=== PATIENT | male | born 1935 | race Asian ===

== ENCOUNTER 2016-06-27 10:01 | Inpatient (IN) | payer OTHER | END 2016-07-28 08:00 | disposition still patient (30) | LOC: PAVC 10:01 | PROVIDERS: ADMIT Internal Medicine | DX: Z51.89 Encounter for other specified aftercare (principal) ==

== ENCOUNTER 2016-07-28 09:00 | Inpatient (IN) | payer OTHER | END 2016-08-28 13:10 | disposition still patient (30) | LOC: PAVC 09:00 | PROVIDERS: ADMIT Internal Medicine | DX: Z51.89 Encounter for other specified aftercare (principal) ==

== ENCOUNTER 2016-08-09 12:44 | Outpatient (CLI) | payer OTHER | END 2016-08-09 21:44 | disposition home or self-care (01) | LOC: LAB 12:44 | DX: M10.9 Gout, unspecified (principal) | CPT/HCPCS: 36415; 84550 ==

== ENCOUNTER 2016-08-28 13:20 | Inpatient (IN) | payer OTHER | END 2016-09-25 13:24 | disposition still patient (30) | LOC: PAVC 13:20 | PROVIDERS: ADMIT Internal Medicine | DX: Z51.89 Encounter for other specified aftercare (principal) ==

== ENCOUNTER 2016-09-25 13:54 | Inpatient (IN) | payer OTHER | END 2016-10-26 08:16 | disposition still patient (30) | LOC: PAVC 13:54 | PROVIDERS: ADMIT Internal Medicine | DX: Z51.89 Encounter for other specified aftercare (principal) ==

== ENCOUNTER 2016-10-26 08:25 | Inpatient (IN) | payer OTHER | END 2016-11-25 11:01 | disposition still patient (30) | LOC: PAVC 08:25 | PROVIDERS: ADMIT Internal Medicine | DX: Z51.89 Encounter for other specified aftercare (principal) ==

== ENCOUNTER 2016-11-24 10:39 | Outpatient (CLI) | payer OTHER | END 2016-11-24 19:47 | disposition home or self-care (01) | LOC: LAB 10:39 | DX: Z16.24 Resistance to multiple antibiotics (principal) | CPT/HCPCS: 87081 ==

== ENCOUNTER 2016-11-25 11:09 | Inpatient (IN) | payer OTHER | END 2016-12-26 11:13 | disposition still patient (30) | LOC: PAVC 11:09 | PROVIDERS: ADMIT Internal Medicine | DX: Z51.89 Encounter for other specified aftercare (principal) ==

== ENCOUNTER 2016-12-26 11:19 | Inpatient (IN) | payer OTHER | END 2017-01-25 16:13 | disposition still patient (30) | LOC: PAVC 11:19 | PROVIDERS: ADMIT Internal Medicine | DX: Z51.89 Encounter for other specified aftercare (principal) ==

== ENCOUNTER 2017-01-25 16:14 | Inpatient (IN) | payer OTHER | END 2017-02-25 13:04 | disposition still patient (30) | LOC: PAVC 16:14 | PROVIDERS: ADMIT Internal Medicine | DX: Z51.89 Encounter for other specified aftercare (principal) ==

== ENCOUNTER 2017-02-25 14:28 | Inpatient (IN) | payer OTHER | END 2017-03-28 10:02 | disposition still patient (30) | LOC: PAVC 14:28 | PROVIDERS: ADMIT Internal Medicine | DX: Z51.89 Encounter for other specified aftercare (principal) ==

== ENCOUNTER 2017-03-28 10:09 | Inpatient (IN) | payer OTHER | END 2017-04-27 09:40 | disposition still patient (30) | LOC: PAVC 10:09 | PROVIDERS: ADMIT Internal Medicine | DX: Z51.89 Encounter for other specified aftercare (principal) ==

== ENCOUNTER 2017-04-27 09:46 | Inpatient (IN) | payer OTHER | END 2017-05-28 14:23 | disposition still patient (30) | LOC: PAVC 09:46 | PROVIDERS: ADMIT Internal Medicine ==

== ENCOUNTER 2017-05-28 15:31 | Inpatient (IN) | payer OTHER | END 2017-06-27 10:34 | disposition still patient (30) | LOC: PAVC 15:31 | PROVIDERS: ADMIT Internal Medicine ==

== ENCOUNTER 2017-06-27 11:12 | Inpatient (IN) | payer OTHER | END 2017-07-28 11:19 | disposition still patient (30) | LOC: PAVC 11:12 | PROVIDERS: ADMIT Internal Medicine ==

== ENCOUNTER 2017-07-28 11:29 | Inpatient (IN) | payer OTHER | END 2017-08-28 11:16 | disposition still patient (30) | LOC: PAVC 11:29 | PROVIDERS: ADMIT Internal Medicine ==

== ENCOUNTER 2017-08-25 05:06 | Outpatient (CLI) | payer OTHER | END 2017-08-25 21:07 | disposition home or self-care (01) | LOC: LAB 05:06 | PROVIDERS: Internal Medicine | DX: Z13.220 Encounter for screening for lipoid disorders (principal); M10.00 Idiopathic gout, unspecified site; E78.6 Lipoprotein deficiency | CPT/HCPCS: 36415; 80061; 84550 ==

== ENCOUNTER 2017-08-28 11:18 | Inpatient (IN) | payer OTHER | END 2017-09-25 10:42 | disposition still patient (30) | LOC: PAVC 11:18 | PROVIDERS: ADMIT Internal Medicine ==

== ENCOUNTER 2017-09-24 13:39 | Outpatient (CLI) | payer OTHER | END 2017-09-24 21:41 | disposition home or self-care (01) | LOC: LAB 13:39 | DX: D64.89 Other specified anemias (principal) | CPT/HCPCS: 85018 ==

== ENCOUNTER 2017-09-25 11:14 | Inpatient (IN) | payer OTHER | END 2017-10-26 08:00 | disposition still patient (30) | LOC: PAVC 11:14 | PROVIDERS: ADMIT Internal Medicine ==

== ENCOUNTER 2017-10-26 09:00 | Inpatient (IN) | payer OTHER | END 2017-11-25 10:34 | disposition still patient (30) | LOC: PAVC 09:00 | PROVIDERS: ADMIT Internal Medicine ==

== ENCOUNTER 2017-11-25 11:10 | Inpatient (IN) | payer OTHER | END 2017-12-26 10:28 | disposition still patient (30) | LOC: PAVC 11:10 | PROVIDERS: ADMIT Internal Medicine ==

== ENCOUNTER 2017-12-26 10:34 | Inpatient (IN) | payer OTHER | END 2018-01-25 15:08 | disposition still patient (30) | LOC: PAVC 10:34 | PROVIDERS: ADMIT Internal Medicine ==

== ENCOUNTER 2018-01-16 06:06 | Outpatient (CLI) | payer OTHER | END 2018-01-16 18:54 | disposition home or self-care (01) | LOC: LAB 06:06 | DX: D52.8 Other folate deficiency anemias (principal) | CPT/HCPCS: 36415; 82607; 82746; 82747 ==

== ENCOUNTER 2018-01-25 15:16 | Inpatient (IN) | payer OTHER | END 2018-02-25 08:00 | disposition still patient (30) | LOC: PAVC 15:16 | PROVIDERS: ADMIT Internal Medicine ==

== ENCOUNTER 2018-01-30 06:19 | Outpatient (CLI) | payer OTHER | END 2018-01-30 19:03 | disposition home or self-care (01) | LOC: LAB 06:19 | DX: M10.9 Gout, unspecified (principal) | CPT/HCPCS: 84550 ==

== ENCOUNTER 2018-02-25 09:00 | Inpatient (IN) | payer OTHER | END 2018-03-28 11:14 | disposition still patient (30) | LOC: PAVC 09:00 | PROVIDERS: ADMIT Internal Medicine ==

== ENCOUNTER 2018-03-28 11:16 | Inpatient (IN) | payer OTHER | END 2018-04-27 15:08 | disposition still patient (30) | LOC: PAVC 11:16 | PROVIDERS: ADMIT Internal Medicine ==

== ENCOUNTER 2018-04-27 16:20 | Inpatient (IN) | payer OTHER | END 2018-05-28 10:43 | disposition still patient (30) | LOC: PAVC 16:20 | PROVIDERS: ADMIT Internal Medicine ==

== ENCOUNTER 2018-05-28 10:55 | Inpatient (IN) | payer OTHER | END 2018-06-27 07:09 | disposition still patient (30) | LOC: PAVC 10:55 | PROVIDERS: ADMIT Internal Medicine ==

== ENCOUNTER 2018-06-27 07:10 | Inpatient (IN) | payer OTHER | END 2018-07-28 09:41 | disposition still patient (30) | LOC: PAVC 07:10 | PROVIDERS: ADMIT Internal Medicine ==

== ENCOUNTER 2018-07-28 10:16 | Inpatient (IN) | payer OTHER | END 2018-08-28 08:42 | disposition still patient (30) | LOC: PAVC 10:16 | PROVIDERS: ADMIT Internal Medicine ==

== ENCOUNTER 2018-08-03 04:51 | Outpatient (CLI) | payer OTHER | END 2018-08-03 20:15 | disposition home or self-care (01) | LOC: LAB 04:51 | PROVIDERS: Internal Medicine | DX: M10.9 Gout, unspecified (principal); N17.9 Acute kidney failure, unspecified; Z79.899 Other long term (current) drug therapy | CPT/HCPCS: 80061; 84550 ==

== ENCOUNTER 2018-08-28 09:19 | Inpatient (IN) | payer OTHER | END 2018-09-25 13:54 | disposition still patient (30) | LOC: PAVC 09:19 | PROVIDERS: ADMIT Internal Medicine ==

== ENCOUNTER 2018-09-25 14:09 | Inpatient (IN) | payer OTHER | END 2018-10-26 13:06 | disposition still patient (30) | LOC: PAVC 14:09 | PROVIDERS: ADMIT Internal Medicine ==

== ENCOUNTER 2018-10-15 15:43 | Outpatient (CLI) | payer OTHER | END 2018-10-15 19:17 | disposition home or self-care (01) | LOC: RAD 15:43 | DX: M25.551 Pain in right hip (principal); M25.561 Pain in right knee ==

== ENCOUNTER 2018-10-26 13:14 | Inpatient (IN) | payer OTHER | END 2018-11-25 15:57 | disposition still patient (30) | LOC: PAVC 13:14 | PROVIDERS: ADMIT Internal Medicine ==

== ENCOUNTER 2018-11-11 16:18 | Outpatient (CLI) | payer OTHER | END 2018-11-11 23:48 | disposition home or self-care (01) | LOC: LAB 16:18 | DX: Z12.5 Encounter for screening for malignant neoplasm of prostate (principal) | CPT/HCPCS: 36415; 84153 ==

== ENCOUNTER 2018-11-25 16:40 | Inpatient (IN) | payer OTHER | END 2018-12-26 09:43 | disposition still patient (30) | LOC: PAVC 16:40 | PROVIDERS: ADMIT Internal Medicine | DX: I63.50 Cerebral infarction due to unspecified occlusion or stenosis of unspecified cerebral artery (principal); J15.9 Unspecified bacterial pneumonia; M62.81 Muscle weakness (generalized); N18.6 End stage renal disease; I10 Essential (primary) hypertension; K21.9 Gastro-esophageal reflux disease without esophagitis; M10.9 Gout, unspecified; Z99.2 Dependence on renal dialysis; M13.80 Other specified arthritis, unspecified site ==

== ENCOUNTER 2018-12-18 08:08 | Outpatient (CLI) | payer OTHER | END 2018-12-18 23:15 | disposition home or self-care (01) | LOC: LAB 08:08 | DX: I20.8 Other forms of angina pectoris (principal); R06.02 Shortness of breath | CPT/HCPCS: 36415; 82550; 82553; 83880; 84484 ==

== ENCOUNTER 2018-12-18 12:53 | Outpatient (CLI) | payer OTHER | END 2018-12-18 12:54 | disposition short-term general hospital (02) | LOC: AMB 12:53 | DX: R06.02 Shortness of breath (principal); R07.89 Other chest pain | CPT/HCPCS: A0425; A0429 ==

== ENCOUNTER 2018-12-18 12:58 | Emergency (ER) | payer OTHER ==
[~2018-12-18] VITALS: Ht 175.3 cm; Wt 69.9 kg
[2018-12-18 13:11] VITALS: TEMP 97.5
[2018-12-18 13:32] LABS: PLATELET COUNT 144 K/uL (142-355)
[2018-12-18 13:51] LABS: PARTIAL THROMBOPLASTIN TIME 24.3 SECONDS (24.5-33.6)
[2018-12-18 13:59] LABS: POTASSIUM 3.6 mmol/L (3.6-5.2)
[2018-12-18 17:21] VITALS: BP 130/64
== END 2018-12-18 16:30 | disposition short-term general hospital (02) ==
LOC: ED 12:58
PROVIDERS: Student in an Organized Health Care Education/Training Program
DX: J18.9 Pneumonia, unspecified organism (principal); R79.89 Other specified abnormal findings of blood chemistry; R07.89 Other chest pain
CPT/HCPCS: 36415; 80053; 83880; 84484; 85027; 85610; 85730; 87040; 93005; 96365; 96366; 99284; J0456; J0696

== ENCOUNTER 2019-01-25 14:07 | Inpatient (IN) | payer OTHER | END 2019-02-25 12:35 | disposition still patient (30) | LOC: PAVC 14:07 | PROVIDERS: ADMIT Internal Medicine | DX: I63.50 Cerebral infarction due to unspecified occlusion or stenosis of unspecified cerebral artery (principal); J15.9 Unspecified bacterial pneumonia; M62.81 Muscle weakness (generalized); N18.6 End stage renal disease; I10 Essential (primary) hypertension; K21.9 Gastro-esophageal reflux disease without esophagitis; M10.9 Gout, unspecified; Z99.2 Dependence on renal dialysis; M13.80 Other specified arthritis, unspecified site ==

== ENCOUNTER 2019-02-09 08:27 | Outpatient (CLI) | payer OTHER | END 2019-02-09 23:23 | disposition home or self-care (01) | LOC: LAB 08:27 | DX: E79.0 Hyperuricemia without signs of inflammatory arthritis and tophaceous disease (principal) | CPT/HCPCS: 84550 ==

== ENCOUNTER 2019-02-16 03:15 | Outpatient (CLI) | payer OTHER | END 2019-02-16 22:23 | disposition home or self-care (01) | LOC: LAB 03:15 | DX: D64.89 Other specified anemias (principal); D51.8 Other vitamin B12 deficiency anemias | CPT/HCPCS: 82607 ==

== ENCOUNTER 2019-02-25 12:53 | Inpatient (IN) | payer OTHER | END 2019-03-28 17:20 | disposition still patient (30) | LOC: PAVC 12:53 | PROVIDERS: ADMIT Internal Medicine ==

== ENCOUNTER 2019-03-23 13:49 | Outpatient (CLI) | payer OTHER ==
[2019-03-23 14:05] LABS: PLATELET COUNT 137 K/uL (142-355)
[2019-03-23 14:53] LABS: POTASSIUM 4.4 mmol/L (3.6-5.2)
== END 2019-03-23 23:59 | disposition home or self-care (01) ==
LOC: LAB 13:49
PROVIDERS: Internal Medicine
DX: R06.09 Other forms of dyspnea (principal); R41.82 Altered mental status, unspecified; N17.8 Other acute kidney failure
CPT/HCPCS: 80053; 83880; 85027

== ENCOUNTER 2019-03-28 17:27 | Inpatient (IN) | payer OTHER | END 2019-04-27 12:58 | disposition still patient (30) | LOC: PAVC 17:27 | PROVIDERS: ADMIT Internal Medicine ==

== ENCOUNTER 2019-04-27 13:32 | Inpatient (IN) | payer OTHER ==
[2019-05-22] MEDS ORDERED: DOCU100C10 PO (21:36)
[2019-05-22] MEDS ORDERED: HYDRALAZINE25 MG PO (21:37)
[2019-05-22] MEDS ORDERED: AMLODIPINE BESYLATE PO (21:59)
[2019-05-22] MEDS ORDERED: OMEP20CA PO (22:46)
[2019-05-22] MEDS ORDERED: RENVELA800 MG PO (22:49)
[2019-05-22] MEDS ORDERED: SIMV20TA2 PO (22:50)
[2019-05-22] MEDS ORDERED: ALLO100T22 PO (22:52)
[2019-05-22] MEDS ORDERED: TYLENOL325 MG PO (22:56)
[2019-05-23] MEDS ORDERED: CARV6.25 PO (08:01)
[2019-05-23] MEDS ORDERED: IPRATROPIUM/ INH (08:02)
[2019-05-23] MEDS ORDERED: GUAI600T70 PO (08:02)
[2019-05-23] MEDS ORDERED: METH125I IV (08:03)
== END 2019-05-28 14:14 | disposition still patient (30) ==
LOC: PAVC 13:32
PROVIDERS: ADMIT Internal Medicine

== ENCOUNTER 2019-05-22 11:27 | Observation (INO) | payer OTHER ==
[~2019-05-22] VITALS: Ht 175.3 cm; Wt 71.9 kg
[2019-05-22 11:27] VITALS: BP 122/55; TEMP 97.2
[2019-05-22 12:01] LABS: PLATELET COUNT 86 K/uL (142-355)
[2019-05-22 12:14] LABS: POTASSIUM 3.6 mmol/L (3.6-5.2)
[2019-05-22 16:52] VITALS: BP 152/67; TEMP 98.6; Ht 175.3 cm; Wt 71.9 kg
[2019-05-22 20:00] VITALS: BP 127/67; TEMP 98.7
[2019-05-22] MEDS ORDERED: DOCU100C10 PO (21:36)
[2019-05-22] MEDS ORDERED: HYDRALAZINE25 MG PO (21:37)
[2019-05-22] MEDS ORDERED: AMLODIPINE BESYLATE PO (21:59)
[2019-05-22] MEDS ORDERED: OMEP20CA PO (22:46)
[2019-05-22] MEDS ORDERED: RENVELA800 MG PO (22:49)
[2019-05-22] MEDS ORDERED: SIMV20TA2 PO (22:50)
[2019-05-22] MEDS ORDERED: ALLO100T22 PO (22:52)
[2019-05-22] MEDS ORDERED: TYLENOL325 MG PO (22:56)
[2019-05-22 23:52] VITALS: BP 146/68; TEMP 98.4
[2019-05-23 03:58] VITALS: BP 143/72; TEMP 98.4
[2019-05-23 04:25] LABS: PLATELET COUNT 89 K/uL (142-355)
[2019-05-23 04:38] LABS: POTASSIUM 4.5 mmol/L (3.6-5.2)
[2019-05-23 08:00] VITALS: BP 157/72; TEMP 98.6
[2019-05-23] MEDS ORDERED: CARV6.25 PO (08:01)
[2019-05-23] MEDS ORDERED: GUAI600T70 PO (08:02)
[2019-05-23] MEDS ORDERED: IPRATROPIUM/ INH (08:02)
[2019-05-23] MEDS ORDERED: METH125I IV (08:03)
--- NOTE | 2019-05-23 10:51 | NUR ---
PATIENT WAS STILL LETHARGIC THIS MORNING AND WAS CHEEKING HIS FOOD. I ASKED DOCTOR Marissa LOZANO IF I COULD HOLD HIS MORNING MEDICATIONS AND SHE AGREED IT WAS OK. HE WAS DISCHARGED TO THE [facility] [place] AT 1030. HIS NURSE ALICIA ESPITIA LPN. RECIEVED REPORT AND HIS PAPERWORK.
== END 2019-05-23 10:30 ==
LOC: ED 11:27 → MED/SURG 13:52
PROVIDERS: Emergency Medicine; ADMIT Family Medicine
DX: J18.8 Other pneumonia, unspecified organism (principal); N18.6 End stage renal disease; Z99.2 Dependence on renal dialysis; Z95.1 Presence of aortocoronary bypass graft; I10 Essential (primary) hypertension; I25.10 Atherosclerotic heart disease of native coronary artery without angina pectoris; E16.1 Other hypoglycemia; R53.83 Other fatigue; R41.82 Altered mental status, unspecified; R62.7 Adult failure to thrive
CPT/HCPCS: 80053; 82550; 82553; 82948; 82962; 83605; 83880; 84484; 85027; 87040; 94640; 94664; 94760; 96360; 96366; 96367; 96374; 96376; 99220; 99284; G0378; J0456; J0696; J2930; J7060

== ENCOUNTER 2019-05-25 12:32 | Outpatient (CLI) | payer OTHER ==
[~2019-05-25 12:32] MED LIST: ALLO100T22 PO; AMLODIPINE BESYLATE PO; CARV6.25 PO; DOCU100C10 PO; GUAI600T70 PO; HYDRALAZINE25 MG PO; IPRATROPIUM/ INH; METH125I IV; OMEP20CA PO; RENVELA800 MG PO; SIMV20TA2 PO; TYLENOL325 MG PO
== END 2019-05-25 20:20 | disposition home or self-care (01) ==
LOC: RAD 12:32
DX: R05 Cough (principal); J18.9 Pneumonia, unspecified organism

== ENCOUNTER 2019-05-28 14:42 | Inpatient (IN) | payer OTHER | END 2019-06-27 08:00 | disposition still patient (30) | LOC: PAVC 14:42 | PROVIDERS: ADMIT Internal Medicine | DX: J18.9 Pneumonia, unspecified organism (principal); N18.6 End stage renal disease; R13.10 Dysphagia, unspecified; Z99.2 Dependence on renal dialysis; I10 Essential (primary) hypertension; D64.9 Anemia, unspecified; M10.9 Gout, unspecified; K21.9 Gastro-esophageal reflux disease without esophagitis; I63.50 Cerebral infarction due to unspecified occlusion or stenosis of unspecified cerebral artery ==

== ENCOUNTER 2019-06-27 11:00 | Inpatient (IN) | payer OTHER | END 2019-07-28 09:31 | disposition still patient (30) | LOC: PAVC 11:00 | PROVIDERS: ADMIT Internal Medicine | DX: J18.9 Pneumonia, unspecified organism (principal); N18.6 End stage renal disease; R13.10 Dysphagia, unspecified; Z99.2 Dependence on renal dialysis; I10 Essential (primary) hypertension; D64.9 Anemia, unspecified; M10.9 Gout, unspecified; K21.9 Gastro-esophageal reflux disease without esophagitis; I63.50 Cerebral infarction due to unspecified occlusion or stenosis of unspecified cerebral artery ==

== ENCOUNTER 2019-07-28 09:58 | Inpatient (IN) | payer OTHER | END 2019-08-28 10:45 | disposition still patient (30) | LOC: PAVC 09:58 | PROVIDERS: ADMIT Internal Medicine | DX: J18.9 Pneumonia, unspecified organism (principal); N18.6 End stage renal disease; R13.10 Dysphagia, unspecified; Z99.2 Dependence on renal dialysis; I10 Essential (primary) hypertension; D64.9 Anemia, unspecified; M10.9 Gout, unspecified; K21.9 Gastro-esophageal reflux disease without esophagitis; I63.50 Cerebral infarction due to unspecified occlusion or stenosis of unspecified cerebral artery ==

== ENCOUNTER 2019-07-30 05:20 | Outpatient (CLI) | payer OTHER | END 2019-07-30 19:07 | disposition home or self-care (01) | LOC: LAB 05:20 | PROVIDERS: Internal Medicine | DX: E78.49 Other hyperlipidemia (principal); M10.9 Gout, unspecified | CPT/HCPCS: 80061; 84550 ==

== ENCOUNTER 2019-08-25 16:20 | Outpatient (CLI) | payer OTHER | END 2019-08-25 16:21 | disposition short-term general hospital (02) | LOC: AMB 16:20 | DX: R41.0 Disorientation, unspecified (principal); F03.90 Unspecified dementia, unspecified severity, without behavioral disturbance, psychotic disturbance, mood disturbance, and anxiety | CPT/HCPCS: A0425; A0429 ==

== ENCOUNTER 2019-08-25 16:23 | Emergency (ER) | payer OTHER ==
[~2019-08-25] VITALS: Ht 175.3 cm; Wt 71.7 kg
[2019-08-25 17:13] LABS: PLATELET COUNT 109 K/uL (142-355)
[2019-08-25 17:19] LABS: POTASSIUM 3.2 mmol/L (3.6-5.2)
[2019-08-25 18:00] VITALS: BP 148/75
== END 2019-08-25 18:25 | disposition home or self-care (01) ==
LOC: ED 16:33
PROVIDERS: Emergency Medicine
DX: R41.82 Altered mental status, unspecified (principal); F03.91 Unspecified dementia, unspecified severity, with behavioral disturbance; N18.6 End stage renal disease; Z99.2 Dependence on renal dialysis
CPT/HCPCS: 80053; 85027; 99283

== ENCOUNTER 2019-08-26 14:54 | Outpatient (CLI) | payer OTHER | END 2019-08-26 22:43 | disposition home or self-care (01) | LOC: LAB 14:54 | DX: J32.8 Other chronic sinusitis (principal) | CPT/HCPCS: 87070 ==

== ENCOUNTER 2019-08-28 11:13 | Inpatient (IN) | payer OTHER ==
[2019-09-21] MEDS ORDERED: AMLODIPINE BESYLATE PO (16:53)
[2019-09-21] MEDS ORDERED: NEPRO EN (16:56)
== END 2019-09-26 14:11 | disposition still patient (30) ==
LOC: PAVC 11:13
PROVIDERS: ADMIT Internal Medicine

== ENCOUNTER 2019-09-14 15:23 | Outpatient (CLI) | payer OTHER ==
[2019-09-14 15:41] LABS: PLATELET COUNT 87 K/uL (142-355)
[2019-09-14 15:48] LABS: POTASSIUM 3.8 mmol/L (3.6-5.2)
== END 2019-09-14 22:02 | disposition home or self-care (01) ==
LOC: LAB 15:23
PROVIDERS: Internal Medicine
DX: R41.82 Altered mental status, unspecified (principal)
CPT/HCPCS: 80053; 81000; 85027; 87088

== ENCOUNTER 2019-09-21 08:58 | Inpatient (IN) | payer OTHER ==
[~2019-09-21] VITALS: Ht 170.2 cm; Wt 66.9 kg
[2019-09-21 09:04] VITALS: BP 158/62; TEMP 97.9
[2019-09-21 09:29] LABS: PLATELET COUNT 66 K/uL (142-355)
[2019-09-21 09:43] LABS: POTASSIUM 4.3 mmol/L (3.6-5.2)
[2019-09-21 13:00] VITALS: BP 118/72
[2019-09-21] MEDS ORDERED: AMLODIPINE BESYLATE PO (16:53)
[2019-09-21] MEDS ORDERED: NEPRO EN (16:56)
[2019-09-21 20:00] VITALS: BP 160/76; TEMP 97.8
[2019-09-21 23:52] VITALS: BP 158/72; TEMP 96.3
[2019-09-22 02:31] VITALS: BP 178/73; TEMP 97; Ht 170.2 cm; Wt 66.9 kg
[2019-09-22 04:00] VITALS: BP 109/61; TEMP 96.8
[2019-09-22 06:10] LABS: PLATELET COUNT 62 K/uL (142-355)
[2019-09-22 08:00] VITALS: BP 145/74; TEMP 97.3
== END 2019-09-22 09:20 | DRG 689 ==
LOC: ED 08:58 → MED/SURG 13:10
PROVIDERS: Internal Medicine; ADMIT Family Medicine
DX: N39.0 Urinary tract infection, site not specified (principal); N18.6 End stage renal disease; I12.0 Hypertensive chronic kidney disease with stage 5 chronic kidney disease or end stage renal disease; Z99.2 Dependence on renal dialysis; K21.9 Gastro-esophageal reflux disease without esophagitis; Z86.73 Personal history of transient ischemic attack (TIA), and cerebral infarction without residual deficits; B95.2 Enterococcus as the cause of diseases classified elsewhere
CPT/HCPCS: 80053; 81000; 82550; 83605; 84484; 85027; 85379; 87040; 87077; 87086; 87088; 87185; 87186; 93005; 96360; 96365; 99284; J0696

== ENCOUNTER 2019-09-22 15:15 | Outpatient (CLI) | payer OTHER ==
[~2019-09-22] VITALS: Ht 175.3 cm; Wt 69.1 kg
[~2019-09-22 15:15] MED LIST changes: +NEPRO EN
[2019-09-22 15:20] VITALS: BP 155/71; TEMP 97
== END 2019-09-22 16:25 | disposition home or self-care (01) ==
LOC: INF 15:15
DX: A41.89 Other specified sepsis (principal)
CPT/HCPCS: 96365; J0696

== ENCOUNTER 2019-09-26 14:40 | Inpatient (IN) | payer OTHER | END 2019-10-27 11:43 | disposition still patient (30) | LOC: PAVC 14:40 | PROVIDERS: ADMIT Internal Medicine ==

== ENCOUNTER 2019-09-29 05:15 | Outpatient (CLI) | payer OTHER ==
[2019-09-29 11:06] LABS: PLATELET COUNT 61 K/uL (142-355)
== END 2019-09-29 19:26 | disposition home or self-care (01) ==
LOC: LAB 05:15
PROVIDERS: Internal Medicine
DX: I63.50 Cerebral infarction due to unspecified occlusion or stenosis of unspecified cerebral artery (principal); N18.6 End stage renal disease; I12.0 Hypertensive chronic kidney disease with stage 5 chronic kidney disease or end stage renal disease
CPT/HCPCS: 80053; 84550; 85027

== ENCOUNTER 2019-10-27 12:11 | Inpatient (IN) | payer OTHER | END 2019-11-26 11:22 | disposition still patient (30) | LOC: PAVC 12:11 | PROVIDERS: ADMIT Internal Medicine ==

== ENCOUNTER 2019-11-21 08:54 | Emergency (ER) | payer OTHER ==
[~2019-11-21] VITALS: Ht 175.3 cm; Wt 68.9 kg
[2019-11-21 10:10] LABS: PLATELET COUNT 155 K/uL (142-355)
[2019-11-21 10:15] LABS: PARTIAL THROMBOPLASTIN TIME 30.8 SECONDS (24.5-33.6)
[2019-11-21 12:55] VITALS: BP 132/68; TEMP 97.5
== END 2019-11-21 13:00 ==
LOC: ED 08:54
PROVIDERS: Hospitalist
DX: J12.89 Other viral pneumonia (principal); U07.1 COVID-19; J44.9 Chronic obstructive pulmonary disease, unspecified; N18.6 End stage renal disease; Z99.2 Dependence on renal dialysis; R06.02 Shortness of breath
CPT/HCPCS: 36415; 36600; 80053; 82550; 82805; 83605; 83880; 84484; 85027; 85610; 85730; 87040; 93005; 96365; 96366; 96375; 99284; J0456; J2930; J3370